=== PATIENT | female | born 1950 ===

== ENCOUNTER 2025-04-30 06:25 | Day surgery (SDC) | payer OTHER ==
[2025-04-22 13:30] VITALS: BP 130/79
[~2025-04-30 06:25] MED LIST: COZAAR100 MG PO; VERAPAMIL ER240 MG PO; ZOCOR20 MG PO
== END 2025-04-30 11:50 | disposition home or self-care (01) ==
LOC: CIR.AMB 06:25
PROVIDERS: ATTEND Surgery Surgery of the Hand
DX: M65.842 Other synovitis and tenosynovitis, left hand (principal)